=== PATIENT | female | born 1975 | race African-American/Black ===

== ENCOUNTER 2020-11-06 17:56 | Emergency (ER) | payer OTHER, SELFPAY ==
--- NOTE | ~2020-11-06 | XR_ITS ---
EXAMINATION: XR chest 1V portable EXAM DATE: 11/06/2020 18:48 INDICATION: Sob, Chest Tightness. TECHNIQUE: Portable AP frontal chest x-ray was obtained. Comparison is made to prior examination from 05/14/2019. FINDINGS: The lungs are clear. There are no pleural effusions. The cardiomediastinal silhouette is within normal limits. There is no pneumothorax suspected. The bones and soft tissues are unremarkab le. IMPRESSION: No acute cardiopulmonary findings. Reviewed, dictated and finalized at location A. RANCE SOLICITOR
[2020-11-06 18:02] VITALS: BP 154/94; PULSE 94; RESP 23; TEMP 36.6; O2SAT 100
[2020-11-06 18:04] VITALS: PULSE 78
[2020-11-06 18:08] VITALS: PULSE 93; RESP 24
--- NOTE | 2020-11-06 18:10 | ECG_ITS ---
Measurements Intervals [place] Rate: 87 P: 59 FL: 134 QRS: 60 QRSD: 89 T: 16 QT: 376 QTc: 455 Interpretive Statements SINUS RHYTHM NONSPECIFIC T-WAVE ABNORMALITY- ANT/INF LEADS BASELINE ARTIFACT- V3-V6 BORDERLINE ECG Electronically Signed On 11-07-2020 8:02:26 BLOCK LAYER by Jong Chaves D.O.
[2020-11-06] MEDS: SODIUM CHLORIDE 0.9% IV 1,000 ML 999 ML IV CONT (18:33)
[2020-11-06] MEDS: DEXAMETHASONE SOD PHOS INJ 4 MG/ML VIAL 6 MG IV PUSH (18:33)
[2020-11-06 18:47] LABS: Basophils Percent Auto 0.2 % (0.2-1.2); Eosinophils Percent Auto 0.7 % (0-4.4); Hematocrit 43.9 % (37.0-47.0); Hemoglobin 14.9 g/dL (12.0-15.0); Immature Granulocyte Absolute 0.01 K/mm3 (0.00-0.031); Immature Granulocyte Percent A 0.2 % (0-0.5); Lymphocytes Absolute Auto 2.21 K/mm3 (0.9-3.2); Lymphocytes Percent Auto 50.5 % (18.3-44.2); Mean Corpuscular HGB Conc 33.9 g/dl (32-36); Mean Corpuscular Hemoglobin 31.2 pg (26-34); Mean Corpuscular Volume 91.8 fl (80-100); Mean Platelet Volume 11.4 fl (7.4-10.4); Monocytes Absolute Auto 0.3 K/mm3 (0.1-0.6); Monocytes Percent Auto 7.3 % (2.6-8.5); Neutrophils Absolute Auto 1.8 K/mm3 (1.3-6.7); Neutrophils Percent Auto 41.1 % (45.5-73.1); Platelet Count Result 224 k/mm3 (150-375); Red Blood Count 4.78 M/mm3 (4.2-5.4); Red Cell Distribution Width 12.9 % (11.5-14.5); White Blood Count 4.4 K/mm3 (4.5-10.0)
[2020-11-06 19:00] LABS: Lactic Acid Reflex 0.7 mmol/L (0.7-2.1)
[2020-11-06 19:03] LABS: Alanine Aminotransferase 33 U/L (4-35); Albumin Level 4.9 g/dL (3.5-5.1); Alkaline Phosphatase 66 U/L (38-126); Anion Gap 8 mmol/L (8-16); Aspartate Amino Transferase 41 U/L (14-36); Bilirubin,Total 0.6 mg/dL (0.2-1.3); Blood Urea Nitrogen 18 mg/dL (7-17); CRP 0.6 mg/dL (<1.0); Calcium 9.3 mg/dL (8.4-10.2); Carbon Dioxide 33 mmol/L (22-30); Chloride 101 mmol/L (98-107); Estimated CRCL calculation 69 ml/min; Estimated Glomerular Filt Rate > 60; Glucose 94 mg/dL (65-105); INR 0.9; Potassium 3.7 mmol/L (3.4-5.0); Prothrombin Time 12.9 Seconds (11.1-14.7); Sodium 142 mmol/L (137-145)
[2020-11-06 19:04] LABS: Partial Thromboplastin Time 31.6 SECONDS (22.3-36.8)
[2020-11-06 19:06] LABS: D Dimer 0.36 ug/mL (<0.48)
--- NOTE | 2020-11-06 19:09 | ED.GENADULT ---
HPI - General Adult General Chief complaint: Shortness of Breath/Dyspnea Stated complaint: sob, chest pain, possible covid Time Seen by Provider: 11/06/20 17:59 Source: patient Mode of arrival: ambulatory Limitations: no limitations History of Present Illness HPI narrative: Patient is a 45-year-old female who presents to emergency department for evaluation of upper respiratory symptoms for the last 4 days patient notes that multiple family members are sick at home with similar symptoms patient notes headache congestion rhinorrhea subjective fever with chills with myalgias minimal cough had had some diarrhea which has resolved denies emesis notes today she developed some chest heaviness and became concerned and presented for evaluation has been using [id number] medications with minimal improvement on arrival patient did not appear distressed or uncomfortable Related Data Home Medications Medication Instructions Recorded Confirmed aripiprazole 10 mg tablet 10 mg PO DAILY 11/17/19 clonazepam 1 mg tablet 1 mg PO DAILY 11/17/19 penicillin V potassium 500 mg 500 mg PO Q12H 11/17/19 tablet Allergies Allergy/AdvReac Type Severity Reaction Status Date / Time No Known Allergies Allergy Verified 11/06/20 18:05 Review of Systems Review of Systems: All systems reviewed & are unremarkable except as noted in HPI and below PMFSH Past Medical History Medical History Depression History of uterine fibroid Surgical History Surgical History H/O dilation and curettage (~1992) H/O: hysterectomy (~2012) Previous section 2003, 2005, 2011 Family History Family History Mother Hypertension Other Diabetes mellitus Family history of allergic disorder Family history of glaucoma Social History Social History Social History: , lives with and 3 children. 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 Smoking status: Never smoker Alcohol intake: never Exam Narrative: Exam Narrative: GENERAL: Well-appearing, well-nourished, and in no acute distress. HEAD: Normocephalic, atraumatic. EYES: PERRLA and EOMI. ENT: Nares clear, no rhinorrhea or epistaxis. Mucous membranes moist. CHEST: Clear to auscultation. No respiratory distress. No wheezes rales or rhonchi HEART: Regular rate and rhythm. No murmur heard. EXTREMITIES: Normal range of motion. No edema. SKIN: Warm, dry, no rash. NEURO: No focal deficits. Alert and oriented x3. PSYCH: Normal mood and affect. Course Course Emergency Course: Patient in the room no distress no high risk changes in the evaluation patient will be tested for COVID-19 felt safe for discharge home to be treated symptomatically has been advised to self quarantine and follow with primary care purchase a self oximeter to watch her oxygenation no pneumonia no hypoxemia Vital Signs Vital signs: Vital Signs Temperature 97.8 F 11/06/20 18:02 Pulse Rate 94 11/06/20 18:02 Respiratory Rate 23 H 11/06/20 18:02 Blood Pressure 154/94 H 11/06/20 18:02 Pulse Oximetry 100 11/06/20 18:02 Temperature 97.8 F 11/06/20 18:02 Pulse Rate 93 11/06/20 18:08 Respiratory Rate 24 H 11/06/20 18:08 Blood Pressure 154/94 H 11/06/20 18:02 Pulse Oximetry 100 11/06/20 18:02 Medical Decision Making MDM Narrative Medical decision making narrative: Patient in the room in no distress aware of case findings treatment plan diagnosis agreeing to follow-up as directed felt appropriate for outpatient reevaluation ABCs stable vital signs intact felt appropriate for outpatient reevaluation Vital Signs Vital Signs: Vital Signs Temperature 97.8 F 11/06/20 18:02 Pulse Rate 94 11/06/20 18:02 Respiratory Rate 23 H 11/06/20 18:02 Blood Pressure 154/94 H
[2020-11-06 19:13] LABS: Troponin I < 0.012 ng/mL (0.000-0.034)
[2020-11-06 19:33] VITALS: BP 125/81; PULSE 79; RESP 14; O2SAT 100
[2020-11-07 16:54] LABS: SARS-CoV-2 RNA PCR Positive
== END 2020-11-06 19:36 | disposition home or self-care (01) ==
PROVIDERS: Emergency Medicine Emergency Medical Services; Emergency Provider Emergency Medicine; PCP Family Medicine
DX: U07.1 COVID-19 (principal); J06.9 Acute upper respiratory infection, unspecified; F32.9 Major depressive disorder, single episode, unspecified; R94.31 Abnormal electrocardiogram [ECG] [EKG]
CPT/HCPCS: 36415; 71045; 80053; 83605; 84484; 85025; 85380; 85610; 85730; 86140; 87635; 93005; 96365; 96375; 99284; C9803; J0131; J1100; J7030; U0003

== ENCOUNTER 2020-12-08 08:30 | Outpatient (CLI) | payer OTHER, SELFPAY ==
--- NOTE | 2020-12-08 15:49 | P.PCNPFT_ITS ---
PFT Interpretation This is a pulmonary function test with spirometry, plethysmography and diffusing capacity. The test was performed and results interpreted in accordance with the 2019 and 2005 ATS/ERS Task Force guidelines respectively using the Paul/Chinmay reference equations. Findings: Spirometry: The contour of the inspiratory and expiratory flow tracing are no rmal. The FVC is 2.48 L, 74% predicted. The FEV1 is 2.09, 80% predicted. The FEV1: FVC ratio was 84%. Plethysmography: The total lung capacity is 3.36 L, 70% predicted. The functional residual capacity is 1.24 L, 52% predicted. The residual volume is 0.71 L, 44% predicted. Diffusing capacity the absolute diffusion capacity is 18.0, 74% predicted. The diffusing capacity corrected for alveolar volume is 6.39, 152% predicted. Impression: There is a mild restrictive ventilatory abnormality. The spirometry is normal without evidence of an obstructive abnormality. The absolute diffusing capacity is moderately decreased but is increased when corrected for alveolar volume. There are no prior studies for comparison
== END 2020-12-08 08:31 | disposition home or self-care (01) ==
LOC: ANHPFT 08:31
PROVIDERS: PCP Family Medicine; Visit Provider Nurse Practitioner
DX: R06.02 Shortness of breath (principal); R94.31 Abnormal electrocardiogram [ECG] [EKG]
CPT/HCPCS: 94375; 94726; 94729

== ENCOUNTER 2021-01-05 15:31 | Outpatient (CLI) | payer OTHER, SELFPAY ==
--- NOTE | ~2021-01-05 | XR_ITS ---
XR chest 2V DATE: 01/05/2021 16:07 INDICATION: Persistent shortness of breath after Covid 19 in October TECHNIQUE: PA and lateral views COMPARISON: 11/06/2020 portable AP chest FINDINGS: Normal heart size. No hilar or mediastinal enlargement. No pulmonary infiltrate or consolid ation, pleural effusion or pulmonary vascular congestion or pneumothorax. Mild thoracic scoliosis. IMPRESSION: No active cardiopulmonary disease Reviewed, dictated and finalized at location B. E FUND TRADER
[2021-01-05 16:09] LABS: Basophils Percent Auto 0.2 % (0.2-1.2); Eosinophils Absolute Auto 0.1 K/mm3 (0-0.3); Eosinophils Percent Auto 1.3 % (0-4.4); Hemoglobin 13.3 g/dL (12.0-15.0); Immature Granulocyte Absolute 0.02 K/mm3 (0.00-0.031); Immature Granulocyte Percent A 0.2 % (0-0.5); Lymphocytes Absolute Auto 2.49 K/mm3 (0.9-3.2); Lymphocytes Percent Auto 28.4 % (18.3-44.2); Mean Corpuscular HGB Conc 34.1 g/dl (32-36); Mean Corpuscular Hemoglobin 30.8 pg (26-34); Mean Corpuscular Volume 90.3 fl (80-100); Monocytes Absolute Auto 0.4 K/mm3 (0.1-0.6); Neutrophils Absolute Auto 5.8 K/mm3 (1.3-6.7); Neutrophils Percent Auto 65.9 % (45.5-73.1); Platelet Count Result 245 k/mm3 (150-375); Red Blood Count 4.32 M/mm3 (4.2-5.4); Red Cell Distribution Width 12.9 % (11.5-14.5); White Blood Count 8.8 K/mm3 (4.5-10.0)
== END 2021-01-05 15:32 | disposition home or self-care (01) ==
LOC: ANHLAB 15:37
PROVIDERS: PCP Family Medicine; Visit Provider Nurse Practitioner
DX: R53.83 Other fatigue (principal); Z86.16 Personal history of COVID-19
CPT/HCPCS: 36415; 71046; 85025

== ENCOUNTER 2021-01-11 09:18 | Outpatient (CLI) | payer OTHER, SELFPAY ==
--- NOTE | 2021-01-11 14:57 | WPDSIXMINUTE ---
Six Minute Walk This is a 6 minutes walk test. The test was performed and interpreted in accordance with the 2014 ERS/ATS task force guidelines. Findings: The patient's resting room air oxygen saturation measured by pulse oximetry was 98% and her heart rate was 96 bpm. Patient ambulated for 366 meters and oxygen saturation remained 97 to 98%. Heart rate at the end of the study was 102 bpm. There are no prior studies for comparison.
== END 2021-01-11 09:19 | disposition home or self-care (01) ==
PROVIDERS: PCP Family Medicine; Visit Provider Internal Medicine Critical Care Medicine
DX: Z86.16 Personal history of COVID-19 (principal)
CPT/HCPCS: 94618

== ENCOUNTER 2021-01-19 21:40 | Emergency (ER) | payer OTHER, SELFPAY ==
[2021-01-19 21:44] VITALS: BP 127/81; PULSE 99; RESP 14; TEMP 36.6; O2SAT 100
--- NOTE | 2021-01-20 00:50 | ED.LOWEXIN ---
HPI - Extremity Injury (Lower) General Chief Complaint: Extremity Injury, Lower Stated Complaint: leg weakness Time Seen by Provider: 01/20/21 00:33 Source: patient Mode of arrival: ambulatory Limitations: no limitations History of Present Illness HPI Narrative: Patient is a 45-year-old female complaining of left leg pain that started since she had Covid back in October. Patient called her family doctor today and was told to go to the emergency room to get an ultrasound to rule out DVT. Patient denies any chest pain, shortness of breath, dull pain, nausea, vomiting, diarrhea, fever or chills. Related Data Home Medications Medication Instructions Recorded Confirmed aripiprazole 10 mg tablet 5 mg PO DAILY tablet 11/07/20 01/04/21 clonazepam 1 mg tablet 0.5 mg PO DAILY tablet 11/07/20 01/04/21 Allergies Allergy/AdvReac Type Severity Reaction Status Date / Time No Known Allergies Allergy Verified 01/05/21 14:47 Review of Systems Review of Systems: All systems reviewed & are unremarkable except as noted in HPI and below Constitutional: Constitutional: Denies body ache(s), Denies chills, Denies excessive sweating, Denies fatigue, Denies fever(s), Denies headache(s), Denies lethargy, Denies malaise, Denies weakness and Denies weight loss Eyes: Eyes: Denies blurry vision, Denies change in vision and Denies loss of vision ENT: Denies dizziness, Denies ear discharge, Denies headache(s), Denies lip swelling, Denies epistaxis, Denies nasal congestion, Denies neck pain, Denies throat swelling and Denies tongue swelling Cardiovascular: Cardiovascular: Denies chest pain, Denies chest pain at rest, Denies chest pain with activity, Denies diaphoresis, Denies rapid heart rate, Denies edema, Denies irregular heart rhythm, Denies lightheadedness, Denies palpitations, Denies dyspnea and Denies dyspnea on exertion Respiratory: Respiratory: Denies chest congestion, Denies cough, Denies hemoptysis, Denies dyspnea and Denies dyspnea on exertion Gastrointestinal: Gastrointestinal: Denies abdominal pain, Denies melena, Denies hematochezia, Denies diarrhea, Denies nausea, Denies vomiting and Denies hematemesis Musculoskeletal: Musculoskeletal: Denies abnormal gait, Denies deformity, Denies joint swelling, Denies limited range of motion, Denies neck pain and Denies numbness Neurologic: Denies Abnormal speech present, Denies abnormal gait, Denies confusion, Denies dizziness, Denies headache(s), Denies focal weakness, Denies loss of vision, Denies numbness, Denies Other visual disturbances, Denies Sensory deficit (Neuro) and Denies weakness Psychiatric: Psychiatric: Denies confusion, Denies depression, Denies auditory hallucinations, Denies homicidal ideation and Denies suicidal ideation Endocrine: Endocrine: Denies cold intolerance, Denies excessive sweating, Denies fatigue, Denies heat intolerance and Denies palpitations Hematologic/Lymphatic: Hematologic/Lymphatic: Denies easy bleeding and Denies easy bruising Allergic/Immunologic: Allergic/Immunologic: Denies lip swelling, Denies throat swelling and Denies tongue swelling PMFSH Past Medical History Medical History Anxiety Depression History of uterine fibroid Surgical History Surgical History H/O dilation and curettage (~1992) H/O: hysterectomy (~2012) Previous section 2004, 2005, 2011 Family History Family History Mother Hypertension Other Diabetes mellitus Family history of allergic disorder Family history of glaucoma Social History Social History Social History: , lives with and 3 children. 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
[2021-01-20 01:05] VITALS: BP 124/76; PULSE 86; RESP 15; O2SAT 100
== END 2021-01-20 01:05 | disposition home or self-care (01) ==
PROVIDERS: Emergency Provider Emergency Medicine; PCP Family Medicine
DX: M79.605 Pain in left leg (principal); F41.9 Anxiety disorder, unspecified; F32.9 Major depressive disorder, single episode, unspecified; Z86.16 Personal history of COVID-19
CPT/HCPCS: 99282

== ENCOUNTER 2021-01-20 08:18 | Outpatient (CLI) | payer OTHER, SELFPAY ==
--- NOTE | ~2021-01-20 | US_ITS ---
EXAMINATION: US venous doppler [facility] DATE: 01/20/2021 09:23 INDICATION: Left lower limb pain. TECHNIQUE: Grayscale ultrasound images without and with compression and Doppler ultrasound images of the left lower extremity veins were obtained. COMPARISON: None. FINDINGS: The visualized portions of left common femoral vein, profunda (deep) femoral vein, femoral vein, popl iteal vein, peroneal veins, posterior tibial veins, and greater saphenous vein outflow are patent. IMPRESSION: 1. No deep venous thrombosis. Reviewed, dictated and finalized at location A. [employer]
== END 2021-01-20 08:19 | disposition home or self-care (01) ==
PROVIDERS: PCP Family Medicine; Visit Provider Family Medicine
DX: M79.662 Pain in left lower leg (principal)
CPT/HCPCS: 93971

== ENCOUNTER 2021-02-27 08:49 | Outpatient (CLI) | payer OTHER, SELFPAY ==
--- NOTE | 2021-02-27 08:58 | ECHO_ITS ---
Patient Info Name: Chelsea Sun Age: 45 years : 1975 Gender: Female Ht: 63 in Wt: 172 lbs BSA: 1.89 m2 HR: 90 bpm BP: 143 / 96 mmHg Technical Quality: Fair Exam Date: 02/27/2021 9:08 AM Exam Location: [facility] Patient Status: Outpatient Admit Date: 02/27/2021 Staff Ordering Physician: Margarito Harrison MD Appraiser [employer]: Madelin Correa RDCS Attending Provider: Margarito Harrison MD Exam Type: CA echo doppler color flow Study Info Indications R01.1 - Cardiac murmur, unspecified Complete two-dimensional, color flow and Doppler transthoracic echocardiogram is performed. Summary 1. Complete two-dimensional, color flow and Doppler transthoracic echocardiogram is performed. 2. Left ventricular chamber dimension is normal. 3. Left ventricular systolic function is normal, estimated at 65-70%. 4. The left ventricular diastolic function is grade II diastolic dysfunction. 5. E/e' 10 is mildly elevated. 6. Global longitudinal strain is normal at -18.4%. 7. Left atrial chamber dimension is mildly enlarged. 8. There is mild mitral valve regurgitation. 9. There is mild tricuspid valve regurgitation. 10. No pulmonary hypertension, estimated pulmonary arterial systolic pressure is 24 mmHg. Left Ventricle E/e' 10 is mildly elevated. Global longitudinal strain is normal at -18.4%. Left ventricular chamber dimension is normal. Left ventricular systolic function is normal, estimated at 65-70%. The left ventricular diastolic function is grade II diastolic dysfunction. Right Ventricle Right ventricular chamber dimension is normal. Right ventricular systolic function is normal. Left Atria Left atrial chamber dimension is mildly enlarged. Right Atria Right atrial chamber dimension is normal. Aortic Valve The aortic valve is trileaflet. There is no aortic valve stenosis. There is no aortic valve regurgitation. Pulmonic Valve There is no pulmonic regurgitation. Mitral Valve There is no mitral valve stenosis. There is mild mitral valve regurgitation. Tricuspid Valve There is mild tricuspid valve regurgitation. No pulmonary hypertension, estimated pulmonary arterial systolic pressure is 24 mmHg. Pericardium/Pleural There is no pericardial effusion. Inferior Vena Cava Normal inferior vena cava with >50% collapse upon inspiration consistent with normal right atrial pressure, 5 mmHg. Aorta The aortic root size at the sinus of Valsalva is normal. Left Ventricular Outflow Tract Name Value Normal LVOT 2D LVOT Diameter 1.9 cm LVOT Doppler LVOT Peak Gradient 5 mmHg LVOT Mean Gradient 3 mmHg LVOT VTI 19 cm LVOT VTI/AV VTI Ratio 0.8 LVOT Stroke Volume 52 ml LVOT CO 4.1 l/min LVOT CI 2.2 l/min/m2 Pulmonic Valve Name Value Normal
== END 2021-02-27 08:50 | disposition home or self-care (01) ==
PROVIDERS: PCP Family Medicine; Visit Provider Family Medicine
DX: R01.1 Cardiac murmur, unspecified (principal); I34.0 Nonrheumatic mitral (valve) insufficiency; I36.1 Nonrheumatic tricuspid (valve) insufficiency
CPT/HCPCS: 93306

== ENCOUNTER 2022-06-04 15:04 | Outpatient (CLI) | payer OTHER, SELFPAY ==
--- NOTE | ~2022-06-04 | MM_ITS ---
EXAMINATION: MM screening [facility] BI w jose daniel HISTORY: Screening TECHNIQUE: Craniocaudal and mediolateral oblique 3-D tomosynthesis images were obtained and synthetic 2-D images were generated. CAD analysis was submitted and interpreted. COMPARISON: Comparison to multiple prior studies sequentially, with oldest reviewed study dated 04/2013. BREAST PARENCHYMAL COMPOSITION: There are scattered areas of fibroglandular density. FINDINGS: There is no evidence of suspicious mass, calcification, or architectural distortion to sugg est malignancy in either breast. There has been no suspicious interval change. IMPRESSION: 1. No mammographic evidence of malignancy. 2. Recommend routine screening mammography in one year. BI-RADS Category 1: Negative Reviewed, dictated and finalized at location A.
== END 2022-06-04 15:05 | disposition home or self-care (01) ==
LOC: ANHIMG 15:06
PROVIDERS: PCP Family Medicine; Visit Provider Family Medicine
DX: Z12.31 Encounter for screening mammogram for malignant neoplasm of breast (principal)
CPT/HCPCS: 77063; 77067

== ENCOUNTER 2023-02-19 13:54 | Outpatient (CLI) | payer OTHER, SELFPAY ==
[2023-02-19 14:21] LABS: Basophils Percent Auto 0.3 % (0.2-1.2); Eosinophils Absolute Auto 0.1 K/mm3 (0-0.3); Eosinophils Percent Auto 1.5 % (0-4.4); Hematocrit 37.4 % (37.0-47.0); Hemoglobin 12.5 g/dL (12.0-15.0); Immature Granulocyte Absolute 0.01 K/mm3 (0.00-0.031); Immature Granulocyte Percent A 0.1 % (0-0.5); Lymphocytes Absolute Auto 1.91 K/mm3 (0.9-3.2); Lymphocytes Percent Auto 24.2 % (18.3-44.2); Mean Corpuscular HGB Conc 33.4 g/dl (32-36); Mean Corpuscular Hemoglobin 31.5 pg (26-34); Mean Corpuscular Volume 94.2 fl (80-100); Mean Platelet Volume 11.6 fl (7.4-10.4); Monocytes Absolute Auto 0.5 K/mm3 (0.1-0.6); Monocytes Percent Auto 5.8 % (2.6-8.5); Neutrophils Absolute Auto 5.4 K/mm3 (1.3-6.7); Neutrophils Percent Auto 68.1 % (45.5-73.1); Platelet Count Result 193 k/mm3 (150-375); Red Blood Count 3.97 M/mm3 (4.2-5.4); Red Cell Distribution Width 13.2 % (11.5-14.5); White Blood Count 7.9 K/mm3 (4.5-10.0)
[2023-02-19 14:32] LABS: Alanine Aminotransferase 39 U/L (6-35); Albumin Level 4.6 g/dL (3.5-5.1); Alkaline Phosphatase 72 U/L (38-126); Anion Gap 4 mmol/L (8-16); Aspartate Amino Transferase 43 U/L (14-36); Bilirubin,Total 0.4 mg/dL (0.2-1.3); Blood Urea Nitrogen 13 mg/dL (7-17); Calcium 8.8 mg/dL (8.4-10.2); Carbon Dioxide 32 mmol/L (22-30); Chloride 103 mmol/L (98-107); Estimated Glomerular Filt Rate > 60; Glucose 68 mg/dL (65-110); Potassium 3.8 mmol/L (3.4-5.0); Sodium 139 mmol/L (137-145)
[2023-02-19 14:49] LABS: Beta HCG Quantitative < 2.39 mIU/ML
[2023-02-19 15:12] LABS: HIV 1/2 Ab P24 Ag Result Negative (Negative)
[2023-02-19 17:13] LABS: Hepatitis B Surface Antigen Negative (Negative)
[2023-02-19 17:19] LABS: HAV RESULT Negative (Negative); Hepatitis B Core IgM Result Negative (Negative)
[2023-02-19 17:31] LABS: Hepatitis C Virus Antibody Negative (Negative)
[2023-02-20 08:14] LABS: Rapid Plasma Reagin Non-Reactive (NonReactive)
== END 2023-02-19 13:55 | disposition home or self-care (01) ==
LOC: ANHLAB 13:56
PROVIDERS: PCP Family Medicine; Visit Provider Family Medicine
DX: Z00.00 Encounter for general adult medical examination without abnormal findings (principal); Z20.2 Contact with and (suspected) exposure to infections with a predominantly sexual mode of transmission; Z79.899 Other long term (current) drug therapy; I10 Essential (primary) hypertension
CPT/HCPCS: 36415; 80053; 80074; 84702; 85025; 86592; 86703; 87491; 87591; G0432

== ENCOUNTER 2023-11-25 23:58 | Emergency (ER) | payer OTHER, SELFPAY ==
[2023-11-26 00:03] VITALS: BP 120/75; PULSE 61; RESP 15; TEMP 36.4; O2SAT 100
--- NOTE | 2023-11-26 00:42 | ED.GENADULT ---
HPI - General Adult General Chief complaint: Back Pain/Injury Stated complaint: back pain, fall Time Seen by Provider: 11/26/23 00:26 Source: patient Mode of arrival: ambulatory Limitations: no limitations History of Present Illness HPI narrative: This is a 48-year-old female who presents to the ED with chief complaint of back pain from a ground level fall that occurred earlier tonight. Reports that she was walking to [place] when she accidentally slipped in the mud and fell on to the lower back. She has chronic back problems and feels that this is probably exacerbated. 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 Denies fevers, chills, bowel or bladder dysfunction, numbness, weakness. Denies any further sites of pain or injury. Related Data Home Medications Medication Instructions Recorded Confirmed clonazepam 0.5 mg tablet 0.5 mg PO QHS 01/25/21 02/19/23 aripiprazole 5 mg tablet (Abilify) 2 mg PO QHS 05/09/21 02/19/23 lidocaine 5 % topical patch 1 patch topical Q24H 08/30/21 02/19/23 Allergies Allergy/AdvReac Type Severity Reaction Status Date / Time No Known Allergies Allergy Verified 02/19/23 11:16 Review of Systems Review of Systems: All systems as dictated in [facility] Past Medical History Medical History Anxiety Depression Heart murmur History of COVID-19 History of uterine fibroid Mitral valve regurgitation Vitamin D deficiency Surgical History Surgical History H/O dilation and curettage (~1992) H/O: hysterectomy (~2012) Previous section 2004, 2005, 2011 Family History Family History Mother Hypertension Other Diabetes mellitus Family history of allergic disorder Family history of glaucoma Social History Social History Social History: Going thru divorce.3 children lives at home. Smoking status: Never smoker Alcohol intake: never Substance use: never Substance use type: does not use Living arrangements: with family Occupation/Education: unemployed Gender identity (if verbalized by the patient): Female Sexual Orientation (if Verbalized by the Patient): Straight or Heterosexual Agree to blood products: Yes Exam Narrative: GENERAL: Well-appearing, well-nourished, and in no acute distress. HEAD: Normocephalic, atraumatic. EYES: PERRLA and EOMI. ENT: Nares clear, no rhinorrhea or epistaxis. Mucous membranes moist. Oropharynx without tonsillar hypertrophy exudate or other lesions. NECK: Supple. No adenopathy or masses. CHEST: No respiratory distress. Clear to auscultation. No wheezes rales or rhonchi HEART: Regular rate and rhythm. No murmur heard. Normal peripheral pulses. ABDOMEN: Soft, nontender, nondistended, normal active bowel sounds. MSK: Normal range of motion. No edema. No midline spinal tenderness. Ambulatory without difficulty. SKIN: Warm, dry, no rash. NEURO: Alert and oriented x3. No focal deficits. PSYCH: Normal mood and affect. Course Vital Signs Vital signs: Vital Signs Temperature 97.6 F 11/26/23 00:03 Pulse Rate 61 11/26/23 00:03 Respiratory Rate 15 11/26/23 00:03 Blood Pressure 120/75 11/26/23 00:03 Pulse Oximetry 100 11/26/23 00:03 Oxygen Delivery Room Air 11/26/23 00:03 Temperature 97.6 F 11/26/23 00:03 Pulse Rate 61 11/26/23 00:03 Respiratory Rate 15 11/26/23 00:03 Blood Pressure 120/75 11/26/23 00:03 Pulse Oximetry 100 11/26/23 00:03 Oxygen Delivery Room Air 11/26/23 00:03 Medical Decision Making MDM Narrative Medical decision making narrative: This is a 48-year-old female who presents to the ED with chief complaint of a ground level fall mode back pain. Vitals are normal. Exam show
[2023-11-26] MEDS: ACETAMINOPHEN 500 MG TABLET 1000 MG PO (00:49)
[2023-11-26] MEDS: IBUPROFEN 400 MG TABLET 800 MG PO (00:50)
== END 2023-11-26 01:42 | disposition home or self-care (01) ==
LOC: ANHED 11-26 01:22
PROVIDERS: Emergency Provider Physician Assistant; PCP Family Medicine
DX: S39.012A Strain of muscle, fascia and tendon of lower back, initial encounter (principal); I34.0 Nonrheumatic mitral (valve) insufficiency; E55.9 Vitamin D deficiency, unspecified; F41.9 Anxiety disorder, unspecified; F32.A Depression, unspecified; Z90.710 Acquired absence of both cervix and uterus; W01.0XXA Fall on same level from slipping, tripping and stumbling without subsequent striking against object, initial encounter
CPT/HCPCS: 99283; A9270

== ENCOUNTER 2023-11-26 07:00 | Outpatient (CLI) | payer OTHER, SELFPAY ==
[2023-11-26 07:49] LABS: Alanine Aminotransferase 26 U/L (6-35); Albumin Level 4.1 g/dL (3.5-5.1); Alkaline Phosphatase 84 U/L (38-126); Anion Gap 5 mmol/L (8-16); Aspartate Amino Transferase 40 U/L (14-36); Bilirubin,Total 0.5 mg/dL (0.2-1.3); Blood Urea Nitrogen 14 mg/dL (7-17); Calcium 8.8 mg/dL (8.4-10.2); Carbon Dioxide 30 mmol/L (22-30); Chloride 103 mmol/L (98-107); Estimated Glomerular Filt Rate > 60; Glucose 87 mg/dL (65-110); Potassium 3.6 mmol/L (3.4-5.0); Sodium 138 mmol/L (137-145)
[2023-11-26 08:06] LABS: Beta HCG Quantitative < 2.39 mIU/ML
[2023-11-26 08:30] LABS: HIV 1/2 Ab P24 Ag Result Negative (Negative)
== END 2023-11-26 07:01 | disposition home or self-care (01) ==
LOC: ANHLAB 07:02
PROVIDERS: PCP Family Medicine; Visit Provider Family Medicine
DX: Z20.2 Contact with and (suspected) exposure to infections with a predominantly sexual mode of transmission (principal); Z79.899 Other long term (current) drug therapy
CPT/HCPCS: 36415; 80053; 84702; 86703; G0432

== ENCOUNTER 2023-11-26 18:31 | Emergency (ER) | payer OTHER, SELFPAY ==
--- NOTE | ~2023-11-26 | XR_ITS ---
EXAMINATION: XR chest 2V Exam Date/Time: 11/26/2023 21:06 SANDER MACHINE HISTORY: SOB, ASTHMA, CP Comparison: 01/05/2021. RESULT: Lines, tubes, and devices: None. Lungs and pleura: Clear. Cardiomediastinal silhouette: Stable. Other: No acute osseous or upper abdominal finding. IMPRESSION: No acute cardiopulmonary process. Reviewed, dictated and finalized at location K. ER MACHINE
[2023-11-26 19:27] VITALS: BP 109/71; PULSE 65; RESP 20; TEMP 35.9; O2SAT 100
--- NOTE | 2023-11-26 19:31 | ECG_ITS ---
Measurements Intervals [place] Rate: 57 P: 42 DE: 121 QRS: 68 QRSD: 85 T: 31 QT: 402 QTc: 394 Interpretive Statements SINUS BRADYCARDIA RSR' IN V1 OR V2, PROBABLY NORMAL VARIANT BORDERLINE ECG COMPARED TO ECG 11/06/2020 18:08:39 SINUS BRADYCARDIA NOW PRESENT Electronically Signed On 11-27-2023 5:19:16 COMMUNITY [employer] WORKER by Jong Chaves D.O.
[2023-11-26 21:00] VITALS: BP 110/77; PULSE 89; RESP 19; TEMP 36.7; O2SAT 98; O2SAT 99
--- NOTE | 2023-11-26 21:01 | ED.SOB ---
HPI - SOB/Dyspnea General Chief Complaint: Shortness of Breath/Dyspnea Stated Complaint: my asthma is acting up Time Seen by Provider: 11/26/23 20:51 Source: patient Mode of arrival: ambulatory Limitations: no limitations History of Present Illness HPI Narrative: This is a 48-year-old female that presents to the emergency department for evaluation of asthma. Reports history of asthma for which she is on a daily inhaled corticosteroid. She has been out of this for a while. She also reports she recently ran out of her albuterol. Reports no current wheezing or shortness of breath. Reports chest pain with palpation of her chest wall. Related Data Home Medications Medication Instructions Recorded Confirmed clonazepam 0.5 mg tablet 0.5 mg PO QHS 01/25/21 02/19/23 aripiprazole 5 mg tablet (Abilify) 2 mg PO QHS 05/09/21 02/19/23 lidocaine 5 % topical patch 1 patch topical Q24H 08/30/21 02/19/23 Allergies Allergy/AdvReac Type Severity Reaction Status Date / Time No Known Allergies Allergy Verified 11/26/23 18:31 Review of Systems Review of Systems: CONSTITUTIONAL: Denies fever CARDIOVASCULAR: Reports chest pain. Denies edema. RESPIRATORY: Denies cough or dyspnea. All systems reviewed & are unremarkable except as noted in HPI and below PMFSH Past Medical History Medical History Anxiety Depression Heart murmur History of COVID-19 History of uterine fibroid Mitral valve regurgitation Vitamin D deficiency Surgical History Surgical History H/O dilation and curettage (~1992) H/O: hysterectomy (~2012) Previous section 2003, 2005, 2011 Family History Family History Mother Hypertension Other Diabetes mellitus Family history of allergic disorder Family history of glaucoma Social History Social History Social History: Going thru divorce.3 children lives at home. Smoking status: Never smoker Alcohol intake: never Substance use: never Substance use type: does not use Living arrangements: with family Occupation/Education: unemployed Gender identity (if verbalized by the patient): Female Sexual Orientation (if Verbalized by the Patient): Straight or Heterosexual Agree to blood products: Yes Exam Narrative: GENERAL: Well-appearing, well-nourished, and in no acute distress. HEAD: Normocephalic, atraumatic. EYES: EOMI. ENT: Nares clear, no rhinorrhea or epistaxis. Mucous membranes moist. Oropharynx without tonsillar hypertrophy exudate or other lesions. CHEST: Clear to auscultation. No respiratory distress. No wheezes rales or rhonchi. Tender to palpation of anterior, upper chest wall HEART: Regular rate and rhythm. No murmur heard. Normal peripheral pulses. EXTREMITIES: Normal range of motion. No edema. SKIN: Warm, dry, no rash. NEURO: No focal deficits. Alert and oriented x3. PSYCH: Normal mood and affect Course Course Emergency Course: Patient updated on her workup and agrees with plan of care Vital Signs Vital signs: Vital Signs Temperature 96.7 F L 11/26/23 19:27 Pulse Rate 65 11/26/23 19:27 Respiratory Rate 20 11/26/23 19:27 Blood Pressure 109/71 11/26/23 19:27 Pulse Oximetry 100 11/26/23 19:27 Oxygen Delivery Room Air 11/26/23 19:27 Temperature 96.7 F L 11/26/23 19:27 Pulse Rate 65 11/26/23 19:27 Respiratory Rate 20 11/26/23 19:27 Blood Pressure 109/71 11/26/23 19:27 Pulse Oximetry 100 11/26/23 19:27 Oxygen Delivery Room Air 11/26/23 19:27 MDM - SOB/Dyspnea MDM Narrative Medical decision making narrative: Patient presents to the ER for evaluation of asthma. Reports she is out of her Advair and Albuterol. Her lungs are clear on exam. Oxygen saturation is 100% on room air. Chest x-ray without
== END 2023-11-26 21:55 | disposition home or self-care (01) ==
PROVIDERS: Emergency Provider Physician Assistant
DX: J45.909 Unspecified asthma, uncomplicated (principal); R00.1 Bradycardia, unspecified; F41.9 Anxiety disorder, unspecified; F32.A Depression, unspecified
CPT/HCPCS: 36415; 71046; 80053; 84702; 86703; 93005; 99283; G0432

== ENCOUNTER 2023-11-29 20:12 | Emergency (ER) | payer OTHER, SELFPAY ==
[2023-11-29 20:19] VITALS: BP 111/72; PULSE 65; RESP 14; TEMP 36.6; O2SAT 100
--- NOTE | 2023-11-29 22:31 | ED.GENADULT ---
HPI - General Adult General Chief complaint: Unspecified Stated complaint: coughing, needing med refill Time Seen by Provider: 11/29/23 22:06 Source: patient Mode of arrival: ambulatory Limitations: no limitations History of Present Illness HPI narrative: This is a 48-year-old female who presents to the ED for asthma prescriptions. Reports she has had some coughing recently and was prescribed albuterol to the wrong pharmacy. She is requesting these prescriptions to a new pharmacy today. Denies shortness of breath or any other complaint. Related Data Home Medications Medication Instructions Recorded Confirmed clonazepam 0.5 mg tablet 0.5 mg PO QHS 01/25/21 02/19/23 aripiprazole 5 mg tablet (Abilify) 2 mg PO QHS 05/09/21 02/19/23 lidocaine 5 % topical patch 1 patch topical Q24H 08/30/21 02/19/23 Allergies Allergy/AdvReac Type Severity Reaction Status Date / Time No Known Allergies Allergy Verified 11/26/23 18:31 Review of Systems Review of Systems: All systems as dictated in [facility] Past Medical History Medical History Anxiety Depression Heart murmur History of COVID-19 History of uterine fibroid Mitral valve regurgitation Vitamin D deficiency Surgical History Surgical History H/O dilation and curettage (~1992) H/O: hysterectomy (~2012) Previous section 2003, 2005, 2011 Family History Family History Mother Hypertension Other Diabetes mellitus Family history of allergic disorder Family history of glaucoma Social History Social History Social History: Going thru divorce.3 children lives at home. Smoking status: Never smoker Alcohol intake: never Substance use: never Substance use type: does not use Living arrangements: with family Occupation/Education: unemployed Gender identity (if verbalized by the patient): Female Sexual Orientation (if Verbalized by the Patient): Straight or Heterosexual Agree to blood products: Yes Exam Narrative: GENERAL: Well-appearing, well-nourished, and in no acute distress. HEAD: Normocephalic, atraumatic. EYES: PERRLA and EOMI. ENT: Nares clear, no rhinorrhea or epistaxis. Mucous membranes moist. Oropharynx without tonsillar hypertrophy exudate or other lesions. NECK: Supple. No adenopathy or masses. CHEST: No respiratory distress. Clear to auscultation. No wheezes rales or rhonchi HEART: Regular rate and rhythm. No murmur heard. Normal peripheral pulses. ABDOMEN: Soft, nontender, nondistended, normal active bowel sounds. MSK: Normal range of motion. No edema. SKIN: Warm, dry, no rash. NEURO: Alert and oriented x3. No focal deficits. PSYCH: Normal mood and affect. Course Vital Signs Vital signs: Vital Signs Temperature 97.8 F 11/29/23 20:19 Pulse Rate 65 11/29/23 20:19 Respiratory Rate 14 11/29/23 20:19 Blood Pressure 111/72 11/29/23 20:19 Pulse Oximetry 100 11/29/23 20:19 Oxygen Delivery Room Air 11/29/23 20:19 Temperature 97.9 F 11/29/23 22:44 Pulse Rate 67 11/29/23 22:44 Respiratory Rate 16 11/29/23 22:44 Blood Pressure 134/79 11/29/23 22:44 Pulse Oximetry 99 11/29/23 22:44 Oxygen Delivery Room Air 11/29/23 20:19 Medical Decision Making MDM Narrative Medical decision making narrative: This is a 48-year-old female presenting to the ED for medication refill. She is requesting albuterol for asthma. Vitals are normal. Exam benign. Prescription for Advair and albuterol written. Pt will be discharged in stable condition. Return precautions given and supportive measures discussed. Pt is understanding and agreeable with plan for discharge and follow-up with PCP. Vital Signs Vital Signs: Vital Signs Temperature 97.8 F 11/29/23 20:
[2023-11-29 22:44] VITALS: BP 134/79; PULSE 67; RESP 16; TEMP 36.6; O2SAT 99
== END 2023-11-29 22:44 | disposition home or self-care (01) ==
PROVIDERS: Emergency Provider Physician Assistant; PCP Family Medicine
DX: J45.909 Unspecified asthma, uncomplicated (principal); Z76.0 Encounter for issue of repeat prescription; I34.0 Nonrheumatic mitral (valve) insufficiency; E55.9 Vitamin D deficiency, unspecified; F41.9 Anxiety disorder, unspecified; F32.A Depression, unspecified; Z86.16 Personal history of COVID-19; Z90.710 Acquired absence of both cervix and uterus
CPT/HCPCS: 99283

== ENCOUNTER 2023-12-04 22:25 | Emergency (ER) | payer OTHER, SELFPAY ==
[2023-12-04 22:30] VITALS: BP 130/71; PULSE 67; RESP 20; TEMP 36.4; O2SAT 100
--- NOTE | 2023-12-05 01:59 | ED.GENADULT ---
HPI - General Adult General Chief complaint: Unspecified Stated complaint: med refill. Time Seen by Provider: 12/05/23 01:19 History of Present Illness HPI narrative: 48-year-old female with a history of asthma is reporting for evaluation for refill on her medications. She is requesting refills for her albuterol inhaler, Advair Diskus, nebulizer machine and albuterol solution. She is also requesting a vitamin-D refill. She states a few days ago she felt like her asthma has flared up it has since improved. She states she has run out of her meds approximately 1 month ago. She denies chest pain, shortness of breath, cough or congestion, fever, lower extremity edema. Related Data Home Medications Medication Instructions Recorded Confirmed clonazepam 0.5 mg tablet 0.5 mg PO QHS 01/25/21 02/19/23 aripiprazole 5 mg tablet (Abilify) 2 mg PO QHS 05/09/21 02/19/23 lidocaine 5 % topical patch 1 patch topical Q24H 08/30/21 02/19/23 Allergies Allergy/AdvReac Type Severity Reaction Status Date / Time No Known Allergies Allergy Verified 11/26/23 18:31 Review of Systems Review of Systems: CONSTITUTIONAL: Denies fever, chills, or sweats. EYES: Denies visual changes, redness, or discharge. ENT: Denies rhinorrhea, congestion, sore throat, or otalgia. CARDIOVASCULAR: Denies chest pain, palpitations, or edema. RESPIRATORY: See HPI GASTROINTESTINAL: Denies abdominal pain, nausea, vomiting, or diarrhea. GENITOURINARY: Denies dysuria or hematuria. SKIN: Denies rash or itching. MUSCULOSKELETAL: Denies back pain, joint pain, or myalgia. NEUROLOGIC: Denies headache, numbness, or weakness. PSYCHIATRIC: Denies anxiety or depression. [facility] Past Medical History Medical History Anxiety Depression Heart murmur History of COVID-19 History of uterine fibroid Mitral valve regurgitation Vitamin D deficiency Surgical History Surgical History H/O dilation and curettage (~1992) H/O: hysterectomy (~2013) Previous section 2004, 2005, 2012 Family History Family History Mother Hypertension Other Diabetes mellitus Family history of allergic disorder Family history of glaucoma Social History Social History Social History: Going thru divorce.3 children lives at home. Smoking status: Never smoker Alcohol intake: never Substance use: never Substance use type: does not use Living arrangements: with family Occupation/Education: unemployed Gender identity (if verbalized by the patient): Female Sexual Orientation (if Verbalized by the Patient): Straight or Heterosexual Agree to blood products: Yes Exam Narrative: GENERAL: Well-appearing, well-nourished, and in no acute distress. HEAD: Normocephalic, atraumatic. EYES: PERRLA and EOMI. ENT: Nares clear, no rhinorrhea or epistaxis. Mucous membranes moist. NECK: Supple. CHEST: Clear to auscultation. No respiratory distress. HEART: Regular rate and rhythm. holosystolic murmur heard on the left sternal border. Normal peripheral pulses. ABDOMEN: Soft, nontender, nondistended, normal active bowel sounds. EXTREMITIES: Normal range of motion. No edema. SKIN: Warm, dry, no rash. NEURO: No focal deficits. Alert and oriented x3 Course Vital Signs Vital signs: Vital Signs Temperature 97.6 F 12/04/23 22:30 Pulse Rate 67 12/04/23 22:30 Respiratory Rate 20 12/04/23 22:30 Blood Pressure 130/71 12/04/23 22:30 Pulse Oximetry 100 12/04/23 22:30 Oxygen Delivery Room Air 12/04/23 22:30 Temperature 97.6 F 12/04/23 22:30 Pulse Rate 67 12/04/23 22:30 Respiratory Rate 20 12/04/23 22:30 Blood Pressure 130/71 12/04/23 22:30 Pulse Oximetry 100 12/04/23 22:30 Oxygen Delivery Room Air
[2023-12-05 02:33] VITALS: BP 124/69; PULSE 65; RESP 14; O2SAT 100
== END 2023-12-05 02:36 | disposition home or self-care (01) ==
PROVIDERS: Emergency Provider Physician Assistant
DX: J45.909 Unspecified asthma, uncomplicated (principal); Z76.0 Encounter for issue of repeat prescription; F41.9 Anxiety disorder, unspecified; F32.A Depression, unspecified
CPT/HCPCS: 99281

== ENCOUNTER 2023-12-06 18:24 | Emergency (ER) | payer OTHER, SELFPAY ==
[2023-12-06 18:33] VITALS: BP 137/87; PULSE 67; RESP 16; TEMP 36.6; O2SAT 100
--- NOTE | 2023-12-06 21:13 | ED.LOWEXIN ---
HPI - Extremity Injury (Lower) General Chief Complaint: Extremity Injury, Lower Stated Complaint: toe pain Time Seen by Provider: 12/06/23 21:04 History of Present Illness HPI Narrative: Patient is a 48-year-old female here with right great toe pain. She notes that a few weeks ago she kicked a metal gutter when she was upset, injuring her great toe on the right side. She went to an outside hospital at that time, was informed she will likely lose her toenail. She notes that she initially had a blackened discoloration of her toenail, it was quite loose and just recently the toenail fell off. She notes that she walks quite a bit in the cold weather and has had some pain in this toe recently. She denies any additional injuries. She denies any difficulty ambulating. She denies any redness or discoloration of the toe. She denies any open wounds or drainage from the toe. Related Data Home Medications Medication Instructions Recorded Confirmed clonazepam 0.5 mg tablet 0.5 mg PO QHS 01/25/21 02/19/23 aripiprazole 5 mg tablet (Abilify) 2 mg PO QHS 05/09/21 02/19/23 lidocaine 5 % topical patch 1 patch topical Q24H 08/30/21 02/19/23 Allergies Allergy/AdvReac Type Severity Reaction Status Date / Time No Known Allergies Allergy Verified 12/06/23 18:25 Review of Systems Review of Systems: All systems reviewed & are unremarkable except as noted in HPI and below PMFSH Past Medical History Medical History Anxiety Depression Heart murmur History of COVID-19 History of uterine fibroid Mitral valve regurgitation Vitamin D deficiency Surgical History Surgical History H/O dilation and curettage (~1992) H/O: hysterectomy (~2012) Previous section 2003, 2005, 2011 Family History Family History Mother Hypertension Other Diabetes mellitus Family history of allergic disorder Family history of glaucoma Social History Social History Social History: Going thru divorce.3 children lives at home. Smoking status: Never smoker Alcohol intake: never Substance use: never Substance use type: does not use Living arrangements: with family Occupation/Education: unemployed Gender identity (if verbalized by the patient): Female Sexual Orientation (if Verbalized by the Patient): Straight or Heterosexual Agree to blood products: Yes Exam Narrative: GENERAL: Well-appearing, well-nourished, and in no acute distress. HEAD: Normocephalic, atraumatic. EYES: PERRLA and EOMI. ENT: Nares clear. Mucous membranes moist. NECK: Supple. CHEST: Clear to auscultation. No respiratory distress. HEART: Regular rate and rhythm. Normal peripheral pulses. ABDOMEN: Soft, nontender, nondistended. EXTREMITIES: Normal range of motion. No edema. No discoloration of the great toe on the right foot. She appears to have lost her great toe nail and has new growth coming in without any signs of infection, bruising or swelling. SKIN: Warm, dry, no rash. NEURO: No focal deficits. Alert and oriented x3. PSYCH: Normal mood and affect. Course Course Emergency Course: Chart review performed. Patient here with toe pain. Triage vitals normal. Patient seen and evaluated, non toxic appearing, alert, oriented. She appears to have lost her original toe nail on the great toe and it has clean new growth. No concern for infection or new injury. Patient declines tylenol here as she already has some. The results of pertinent diagnostic studies and exam findings were discussed. The patient?s provisional diagnosis and plan of care were discussed with the patient and present family. The patient and/or present family expressed understanding of the diagnosis and plan. The nurse was instructed to provide written instruct
== END 2023-12-06 22:00 | disposition home or self-care (01) ==
LOC: ANHED 21:31
PROVIDERS: Emergency Provider Student in an Organized Health Care Education/Training Program
DX: S99.921A Unspecified injury of right foot, initial encounter (principal); I34.0 Nonrheumatic mitral (valve) insufficiency; E55.9 Vitamin D deficiency, unspecified; F41.9 Anxiety disorder, unspecified; F32.A Depression, unspecified; Z86.16 Personal history of COVID-19; Z90.710 Acquired absence of both cervix and uterus; W22.8XXA Striking against or struck by other objects, initial encounter
CPT/HCPCS: 99282

== ENCOUNTER 2023-12-07 19:37 | Emergency (ER) | payer OTHER, SELFPAY ==
[2023-12-07 19:40] VITALS: BP 145/92; PULSE 70; RESP 18; TEMP 36.5; O2SAT 100
[2023-12-07 20:48] LABS: Appearance Urine Clear (Clear); Bilirubin Urine Negative (Negative); Blood Urine Negative (Negative); Color Urine Yellow (Yellow); Glucose Urine UA Negative (Negative); Ketones Urine Negative (Negative); Leukocyte Esterase Ur Negative LEU/UL (Negative); Nitrate Urine Negative (Negative); Protein Urine Negative (Negative); Specific Grav Ur 1.016 (1.001-1.035)
[2023-12-07 20:53] LABS: Add Urine Microscopic? NO
--- NOTE | 2023-12-08 03:02 | ED.FEMALEGU ---
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 Ongoing since yesterday. No other associated symptoms. Reports no concern for STDs. Denies any abnormal discharge. Denies fevers, abdominal pain, flank pain, vomiting, or hematuria. Related Data Home Medications Medication Instructions Recorded Confirmed clonazepam 0.5 mg tablet 0.5 mg PO QHS 01/25/21 02/19/23 aripiprazole 5 mg tablet (Abilify) 2 mg PO QHS 05/09/21 02/19/23 lidocaine 5 % topical patch 1 patch topical Q24H 08/30/21 02/19/23 Allergies Allergy/AdvReac Type Severity Reaction Status Date / Time No Known Allergies Allergy Verified 12/08/23 02:52 Review of Systems Review of Systems: CONSTITUTIONAL: Denies fever GASTROINTESTINAL: Denies abdominal pain, nausea, vomiting GENITOURINARY: Denies dysuria or hematuria. All systems reviewed & are unremarkable except as noted in HPI and below PMFSH Past Medical History Medical History Anxiety Depression Heart murmur History of COVID-19 History of uterine fibroid Mitral valve regurgitation Vitamin D deficiency Surgical History Surgical History H/O dilation and curettage (~1992) H/O: hysterectomy (~2012) Previous section 2003, 2005, 2011 Family History Family History Mother Hypertension Other Diabetes mellitus Family history of allergic disorder Family history of glaucoma Social History Social History Social History: Going thru divorce.3 children lives at home. Smoking status: Never smoker Alcohol intake: never Substance use: never Substance use type: does not use Living arrangements: with family Occupation/Education: unemployed Gender identity (if verbalized by the patient): Female Sexual Orientation (if Verbalized by the Patient): Straight or Heterosexual Agree to blood products: Yes Exam Narrative: GENERAL: Well-appearing, well-nourished, and in no acute distress. HEAD: Normocephalic, atraumatic. EYES: EOMI. CHEST: Clear to auscultation. No respiratory distress. No wheezes rales or rhonchi HEART: Regular rate and rhythm. No murmur heard. Normal peripheral pulses. ABDOMEN: Nondistended. No CVA tenderness EXTREMITIES: Normal range of motion. No edema. SKIN: Warm, dry, no rash. NEURO: No focal deficits. Alert and oriented x3. PSYCH: Normal mood and affect Course Course Emergency Course: Patient updated on her workup and agrees with plan of care Vital Signs Vital signs: Vital Signs Temperature 97.7 F 12/07/23 19:40 Pulse Rate 70 12/07/23 19:40 Respiratory Rate 18 12/07/23 19:40 Blood Pressure 145/92 H 12/07/23 19:40 Pulse Oximetry 100 12/07/23 19:40 Oxygen Delivery Room Air 12/07/23 19:40 Temperature 97.7 F 12/07/23 19:40 Pulse Rate 70 12/07/23 19:40 Respiratory Rate 18 12/07/23 19:40 Blood Pressure 145/92 H 12/07/23 19:40 Pulse Oximetry 100 12/07/23 19:40 Oxygen Delivery Room Air 12/07/23 19:40 MDM - Female Genitourinary MDM Narrative Medical decision making narrative: Patient presents to the emergency department for urinary frequency. Denies any associated symptoms. Reports no concern for STDs. She is afebrile and nontoxic appearing. UA without evidence of infection. She was updated on her workup. Instructed to have follow up with primary doctor. She was given warnings to return to the ER Differential Diagnosis Differential diagnosis: Likely urinary tract infection, vaginiti
== END 2023-12-08 03:16 | disposition home or self-care (01) ==
PROVIDERS: Emergency Provider Physician Assistant; PCP Family Medicine
DX: R35.0 Frequency of micturition (principal); I34.0 Nonrheumatic mitral (valve) insufficiency; E55.9 Vitamin D deficiency, unspecified; F41.9 Anxiety disorder, unspecified; F32.A Depression, unspecified; Z86.16 Personal history of COVID-19; Z90.710 Acquired absence of both cervix and uterus
CPT/HCPCS: 81003; 99282; 99283

== ENCOUNTER 2023-12-08 18:37 | Emergency (ER) | payer OTHER, SELFPAY ==
[2023-12-08 18:41] VITALS: BP 145/78; PULSE 70; RESP 16; TEMP 36.8; O2SAT 100
--- NOTE | 2023-12-08 20:48 | ED.GENADULT ---
HPI - General Adult General Chief complaint: Skin/Abscess/Foreign Body Stated complaint: I HAVE FROSTBITE Time Seen by Provider: 12/08/23 19:00 History of Present Illness HPI narrative: Patient is a 48-year-old female presenting with concern for frostbite. She states that she has been outside in the freezing cold all day and has had to take multiple buses to get here. States that her toes and her fingers are extremely cold, she has concern for frostbite. No color changes. No further complaints. Related Data Home Medications Medication Instructions Recorded Confirmed clonazepam 0.5 mg tablet 0.5 mg PO QHS 01/25/21 02/19/23 aripiprazole 5 mg tablet (Abilify) 2 mg PO QHS 05/09/21 02/19/23 lidocaine 5 % topical patch 1 patch topical Q24H 08/30/21 02/19/23 Allergies Allergy/AdvReac Type Severity Reaction Status Date / Time No Known Allergies Allergy Verified 12/08/23 02:52 Review of Systems Review of Systems: All systems reviewed & are unremarkable except as noted in HPI and below PMFSH Past Medical History Medical History Anxiety Depression Heart murmur History of COVID-19 History of uterine fibroid Mitral valve regurgitation Vitamin D deficiency Surgical History Surgical History H/O dilation and curettage (~1992) H/O: hysterectomy (~2012) Previous section 2003, 2005, 2011 Family History Family History Mother Hypertension Other Diabetes mellitus Family history of allergic disorder Family history of glaucoma Social History Social History Social History: Going thru divorce.3 children lives at home. Smoking status: Never smoker Alcohol intake: never Substance use: never Substance use type: does not use Living arrangements: with family Occupation/Education: unemployed Gender identity (if verbalized by the patient): Female Sexual Orientation (if Verbalized by the Patient): Straight or Heterosexual Agree to blood products: Yes Exam Narrative: GENERAL: Well-appearing, In no acute distress, pleasant cooperative HEAD: Normocephalic, atraumatic. EYES: PERRLA and EOMI. ENT: grossly unremarkable NECK: Supple. CHEST: No respiratory distress. HEART: Regular rate and rhythm EXTREMITIES: Normal range of motion. No edema. SKIN: Warm, dry, no rash. fingers and toes are warm, normal color; brisk cap refill NEURO: Alert and oriented x3. PSYCH: Normal mood and affect. Course Vital Signs Vital signs: Vital Signs Temperature 98.2 F 12/08/23 18:41 Pulse Rate 70 12/08/23 18:41 Respiratory Rate 16 12/08/23 18:41 Blood Pressure 145/78 H 12/08/23 18:41 Pulse Oximetry 100 12/08/23 18:41 Oxygen Delivery Room Air 12/08/23 18:41 Temperature 98.2 F 12/08/23 18:41 Pulse Rate 70 12/08/23 18:41 Respiratory Rate 16 12/08/23 18:41 Blood Pressure 145/78 H 12/08/23 18:41 Pulse Oximetry 100 12/08/23 18:41 Oxygen Delivery Room Air 12/08/23 18:41 Medical Decision Making MDM Narrative Medical decision making narrative: 48-year-old female presenting with concern for frostbite. Vitals are stable. Exam remarkable for the above. her exam is not consistent with frostbite. Patient is unfortunately currently homeless. States that she does not have anywhere to go tonight. States that she has been intermittently staying in our waiting room, I feel that this is fine for tonight. Spoke with the charge nurse is agreeable with this. Patient discharged in stable condition. Differential Diagnosis Differential Diagnosis: Homelessness, environmental exposure Medical Records Medical records reviewed: Yes I reviewed the external patient's medical records. Vital Signs Vital Signs: Vital Signs Temperatu
== END 2023-12-08 21:16 | disposition home or self-care (01) ==
PROVIDERS: Emergency Provider Emergency Medicine; PCP Family Medicine
DX: T69.8XXA Other specified effects of reduced temperature, initial encounter (principal); Z59.819 Housing instability, housed unspecified; I34.0 Nonrheumatic mitral (valve) insufficiency; E55.9 Vitamin D deficiency, unspecified; F41.9 Anxiety disorder, unspecified; F32.A Depression, unspecified; Z86.16 Personal history of COVID-19; Z90.710 Acquired absence of both cervix and uterus; X31.XXXA Exposure to excessive natural cold, initial encounter
CPT/HCPCS: 99281

== ENCOUNTER 2023-12-09 19:00 | Emergency (ER) | payer OTHER, SELFPAY ==
[2023-12-09 19:16] VITALS: BP 132/79; PULSE 88; RESP 20; TEMP 36.6; O2SAT 100
[2023-12-10 01:33] VITALS: BP 114/76; PULSE 84; RESP 16; TEMP 36.8; O2SAT 100
--- NOTE | 2023-12-10 02:31 | ED.GENADULT ---
HPI - General Adult General Chief complaint: Unspecified Stated complaint: lady's issue Time Seen by Provider: 12/10/23 02:13 Source: patient and old records reviewed Mode of arrival: ambulatory Limitations: no limitations History of Present Illness HPI narrative: Patient is a 48-year-old female who presents the ED with concern for hemorrhoids. 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 Over the last few days, she has had increased pain related to the hemorrhoids. She denies constipation, reports last bowel movement was just prior to arrival. Denies rectal bleeding, melena, abdominal pain, rectal leakage, fevers. Patient has previously used witch Marisela and tucks pads for relief of hemorrhoids. Per records, patient has been seen in our ED numerous times over the last several days for various issues. It has been reported that she is homeless and has been sleeping in our ED waiting room. Patient states she does have a home and [place], [place], but has had issues with her ex- and has been staying in a motel. [facility] Related Data Home Medications Medication Instructions Recorded Confirmed clonazepam 0.5 mg tablet 0.5 mg PO QHS 01/25/21 02/19/23 aripiprazole 5 mg tablet (Abilify) 2 mg PO QHS 05/09/21 02/19/23 lidocaine 5 % topical patch 1 patch topical Q24H 08/30/21 02/19/23 Allergies Allergy/AdvReac Type Severity Reaction Status Date / Time No Known Allergies Allergy Verified 12/08/23 02:52 Review of Systems Review of Systems: CONSTITUTIONAL: Denies fever, chills, or sweats. GASTROINTESTINAL: See HPI. GENITOURINARY: Denies dysuria or hematuria. All systems reviewed & are unremarkable except as noted in HPI and below PMFSH Past Medical History Medical History Anxiety Depression Heart murmur History of COVID-19 History of uterine fibroid Mitral valve regurgitation Vitamin D deficiency Surgical History Surgical History H/O dilation and curettage (~1992) H/O: hysterectomy (~2012) Previous section 2003, 2005, 2012 Family History Family History Mother Hypertension Other Diabetes mellitus Family history of allergic disorder Family history of glaucoma Social History Social History Social History: Going thru divorce.3 children lives at home. Smoking status: Never smoker Alcohol intake: never Substance use: never Substance use type: does not use Living arrangements: with family Occupation/Education: unemployed Gender identity (if verbalized by the patient): Female Sexual Orientation (if Verbalized by the Patient): Straight or Heterosexual Agree to blood products: Yes Exam Narrative: GENERAL: Well appearing, well-nourished, non-toxic, in no acute distress. HEAD: Normocephalic, atraumatic. RESPIRATORY: Airway patent, respirations nonlabored. CARDIOVASCULAR: Regular rate and rhythm. MUSCULOSKELETAL: Moves all extremities. No gross deformities. RECTAL: Few small external hemorrhoids noted. No evidence of thrombosis. No bleeding. No obvious fissures. SKIN: Warm, dry, normal color. NEURO: A&O X3. Speech clear. PSYCHIATRIC: Appropriate mood and affect. Normal interaction. Course Vital Signs Vital signs: Vital Signs Temperature 98 F 12/09/23 19:16 Pulse Rate 88 12/09/23 19:16 Respiratory Rate 20 12/09/23 19:16 Blood Pressure 132/79 12/09/23 19:16 Pulse Oximetry 100 12/09/23 19:16 Oxygen Delivery Room Air 12/09/23 19:16 Temperature 98.2 F 12/10/23 01:33 Pulse Rate 84 12/10/23 01:33 Respiratory Rate 16 12/10/23 01:33 Blood Pressure 114/76 12/10/23 01:33 Puls
[2023-12-10 02:52] VITALS: BP 126/79; PULSE 63; RESP 15; TEMP 36.6; O2SAT 99
== END 2023-12-10 02:53 | disposition home or self-care (01) ==
PROVIDERS: Emergency Provider Physician Assistant; PCP Family Medicine
DX: K64.4 Residual hemorrhoidal skin tags (principal); I34.0 Nonrheumatic mitral (valve) insufficiency; E55.9 Vitamin D deficiency, unspecified; F41.9 Anxiety disorder, unspecified; F32.A Depression, unspecified; Z86.16 Personal history of COVID-19; Z90.710 Acquired absence of both cervix and uterus
CPT/HCPCS: 99283

== ENCOUNTER 2023-12-10 16:48 | Emergency (ER) | payer OTHER, SELFPAY ==
[2023-12-10 17:20] VITALS: BP 141/70; PULSE 88; RESP 20; TEMP 36.6; O2SAT 98
[2023-12-11 00:11] VITALS: BP 101/64; PULSE 71; RESP 15; TEMP 36.5; O2SAT 100
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
[2023-12-11] MEDS: LIDOCAINE 5% PATCH 1 PATCH TRANSDERM (02:16)
== END 2023-12-11 02:31 | disposition home or self-care (01) ==
PROVIDERS: Emergency Provider Physician Assistant; PCP Family Medicine
DX: S39.012A Strain of muscle, fascia and tendon of lower back, initial encounter (principal); I34.0 Nonrheumatic mitral (valve) insufficiency; E55.9 Vitamin D deficiency, unspecified; F41.9 Anxiety disorder, unspecified; F32.A Depression, unspecified; Z86.16 Personal history of COVID-19; Z90.710 Acquired absence of both cervix and uterus; X50.0XXA Overexertion from strenuous movement or load, initial encounter
CPT/HCPCS: 99283; A9270

== ENCOUNTER 2024-01-03 13:01 | Emergency (ER) | payer OTHER, SELFPAY ==
[2024-01-03 13:08] VITALS: BP 101/65; PULSE 92; RESP 20; TEMP 37.2; O2SAT 100
--- NOTE | 2024-01-03 16:28 | PC.NURSE ---
pt states they do not want to take any pills. pt is still having tangential thoughts out loud and is difficult to distract and de-escalate. pt was offered ice water and they accepted
--- NOTE | 2024-01-03 17:59 | ED.PSYCH ---
HPI - Psych General Chief Complaint: Psychiatric Symptoms <DEBORA Nascimento Last Filed: 01/03/24 19:50> Stated Complaint: psych <DEBORA Nascimento Last Filed: 01/03/24 19:50> Time Seen by Provider: 01/03/24 15:55 <DEBORA Nascimento Last Filed: 01/03/24 19:50> Source: patient <DEBORA Nascimento Last Filed: 01/03/24 19:50> Mode of arrival: ambulatory <DEBORA Nascimento Last Filed: 01/03/24 19:50> Limitations: altered mental status and clinical condition <DEBORA Nascimento Last Filed: 01/03/24 19:50> History of Present Illness HPI Narrative: Patient is a 48-year-old female presents to ED with psychiatric concerns. Patient has previously been seen in our ED several times previously with inclement weather due to homelessness. Today, patient presents to the ED with rambling/tangential thoughts, manic behavior, unable to answer questions or tell me why she is in the ED. Has been speaking nonstop in ED room to the wall. Unable to follow conversation. <DEBORA Nascimento Last Filed: 01/03/24 19:50> Related Data Home Medications: Home Medications Medication Instructions Recorded Confirmed clonazepam 0.5 mg tablet 0.5 mg PO QHS 01/25/21 02/19/23 aripiprazole 5 mg tablet (Abilify) 2 mg PO QHS 05/09/21 02/19/23 lidocaine 5 % topical patch 1 patch topical Q24H 08/30/21 02/19/23 <DEBORA Nascimento Last Filed: 01/03/24 19:50> Allergies/Adverse Reactions: Allergies Allergy/AdvReac Type Severity Reaction Status Date / Time No Known Allergies Allergy Verified 12/08/23 02:52 <DEBORA Nascimento Last Filed: 01/03/24 19:50> Review of Systems Review of Systems: ROS unobtainable: Yes unobtainable due to mental status <Juani Tilley PA-C - Last Filed: 01/03/24 19:50> [facility] Past Medical History Medical History: Medical History Anxiety Depression Heart murmur History of COVID-19 History of uterine fibroid Mitral valve regurgitation Vitamin D deficiency <Juani Tilley PA-C - Last Filed: 01/03/24 19:50> Surgical History Surgical History: Surgical History H/O dilation and curettage (~1992) H/O: hysterectomy (~2012) Previous section 2003, 2005, 2011 <Juani Tilley PA-C - Last Filed: 01/03/24 19:50> Family History Family History: Family History Mother Hypertension Other Diabetes mellitus Family history of allergic disorder Family history of glaucoma <Juani Tilley PA-C - Last Filed: 01/03/24 19:50> Social History Social History: Social History Social History: Going thru divorce.3 children lives at home. Smoking status: Never smoker Alcohol intake: never Substance use: never Substance use type: does not use Living arrangements: with family Occupation/Education: unemployed Gender identity (if verbalized by the patient): Female Sexual Orientation (if Verbalized by the Patient): Straight or Heterosexual Agree to blood products: Yes <Juani Tilley PA-C - Last Filed: 01/03/24 19:50> Exam Narrative: GENERAL: Mildly disheveled, non-toxic, in no acute distress. HEAD: Normocephalic, atraumatic. RESPIRATORY: Airway patent, respirations nonlabored. CARDIOVASCULAR: Regular rate and rhythm MUSCULOSKELETAL: Moves all extremities. No gross deformities. SKIN: Warm, dry, normal color. NEURO: A&O X3. Speech clear. Cranial nerves II-XII grossly intact. Steady gait. No ataxic movements. PSYCHIATRIC: Rapid pressured speech, tangential thoughts, poor insight, labile mood with intermittent agitation/tearfulness. <Juani Tilley PA-C - Last [place]
[2024-01-03 19:24] LABS: Basophils Percent Auto 0.1 % (0.2-1.2); Eosinophils Absolute Auto 0.1 K/mm3 (0-0.3); Eosinophils Percent Auto 0.7 % (0-4.4); Immature Granulocyte Absolute 0.02 K/mm3 (0.00-0.031); Immature Granulocyte Percent A 0.2 % (0-0.5); Lymphocytes Absolute Auto 2.19 K/mm3 (0.9-3.2); Lymphocytes Percent Auto 26.6 % (18.3-44.2); Mean Corpuscular HGB Conc 33.3 g/dl (32-36); Mean Corpuscular Hemoglobin 31.4 pg (26-34); Mean Corpuscular Volume 94.2 fl (80-100); Mean Platelet Volume 10.6 fl (7.4-10.4); Monocytes Absolute Auto 0.5 K/mm3 (0.1-0.6); Monocytes Percent Auto 6.4 % (2.6-8.5); Neutrophils Absolute Auto 5.4 K/mm3 (1.3-6.7); Platelet Count Result 318 k/mm3 (150-375); Red Blood Count 4.46 M/mm3 (4.2-5.4); Red Cell Distribution Width 12.8 % (11.5-14.5); White Blood Count 8.2 K/mm3 (4.5-10.0)
--- NOTE | 2024-01-03 19:32 | PC.NURSE ---
pt care and report given to STEPHANE Costa. all questions answered
[2024-01-03 19:34] LABS: Acetaminophen < 10 ug/mL (10-30); Ethanol < 10 mg/dL (<10); Salicylate < 1.0 mg/dL (2-20)
[2024-01-03 19:41] LABS: Alanine Aminotransferase 49 U/L (6-35); Albumin Level 4.5 g/dL (3.5-5.1); Alkaline Phosphatase 75 U/L (38-126); Anion Gap 7 mmol/L (8-16); Aspartate Amino Transferase 43 U/L (14-36); Bilirubin,Total 1.3 mg/dL (0.2-1.3); Blood Urea Nitrogen 10 mg/dL (7-17); Calcium 9.7 mg/dL (8.4-10.2); Carbon Dioxide 26 mmol/L (22-30); Chloride 103 mmol/L (98-107); Estimated CRCL calculation 72 ml/min; Estimated Glomerular Filt Rate > 60; Glucose 92 mg/dL (65-110); Potassium 3.5 mmol/L (3.4-5.0); Sodium 136 mmol/L (137-145)
[2024-01-03 19:59] LABS: SARS-CoV-2 RNA PCR Negative (Negative)
--- NOTE | 2024-01-03 20:26 | PC.NURSE ---
Addendum entered by Tiffany Roldan RN 01/03/24 20:27: Pt in room, sitting in wheelchair. Original Note: Assumed care of pt. Report from STEPHANE Ribeiro.
--- NOTE | 2024-01-03 20:31 | PC.NURSE ---
Bedside Urine Negative
[2024-01-03 20:33] LABS: Appearance Urine Clear (Clear); Bilirubin Urine Negative (Negative); Blood Urine Negative (Negative); Color Urine Yellow (Yellow); Glucose Urine UA Negative (Negative); Ketones Urine Trace mg/dL (Negative); Leukocyte Esterase Ur Negative LEU/UL (Negative); Nitrate Urine Negative (Negative); Protein Urine Negative (Negative); Specific Grav Ur 1.006 (1.001-1.035)
[2024-01-03 20:36] LABS: Add Urine Microscopic? NO
[2024-01-03 20:49] LABS: Amphetamine Screen Urine Negative (Negative); Barbiturate Screen Urine Negative (Negative); Benzodiazepines Screen Urine Negative (Negative); Cannabinoid Screen Urine Negative (Negative); Cocaine Screen Urine Negative (Negative); Methadone Screen Urine Negative (Negative); Opiate Screen Urine Negative (Negative); Phencyclidine Screen Urine Negative (Negative)
--- NOTE | 2024-01-03 21:47 | PC.NURSE ---
All lab results back. Calling Crisis.
--- NOTE | 2024-01-03 23:00 | PC.NURSE ---
Crisis at bedside.
--- NOTE | 2024-01-03 23:30 | PC.NURSE ---
Per Crisis, no criteria for admission. States they called her daughter who reports that dad will not allow pt back in the house at this time. Asked if daughter/dad could pay for hotel room since temps are low. Awaiting their call back.
[2024-01-04 00:47] VITALS: BP 121/72; PULSE 67; RESP 14; TEMP 36.7; O2SAT 100
--- NOTE | 2024-01-04 00:59 | PC.NURSE ---
PT given food and new scrub pants.
== END 2024-01-04 01:40 | disposition home or self-care (01) ==
PROVIDERS: Emergency Provider Physician Assistant
DX: F30.9 Manic episode, unspecified (principal); Z11.52 Encounter for screening for COVID-19; I34.0 Nonrheumatic mitral (valve) insufficiency; E55.9 Vitamin D deficiency, unspecified; F41.9 Anxiety disorder, unspecified; Z86.16 Personal history of COVID-19; Z90.710 Acquired absence of both cervix and uterus
CPT/HCPCS: 36415; 80053; 80307; 81003; 84443; 85025; 87635; 99284

== ENCOUNTER 2024-04-05 06:39 | Emergency (ER) | payer OTHER, SELFPAY ==
[2024-04-05 06:47] VITALS: BP 122/75; PULSE 65; RESP 18; TEMP 36.6; O2SAT 100
--- NOTE | 2024-04-05 07:15 | PC.NURSE ---
pt in front lobby talking on phone
--- NOTE | 2024-04-05 07:27 | ED.GENADULT ---
HPI - General Adult General Chief complaint: Unspecified Stated complaint: asthma, back, feet Time Seen by Provider: 04/05/24 07:00 History of Present Illness HPI narrative: Patient is a 48-year-old female who presents ER for medication refill. Patient is requesting a lidocaine patch, albuterol/ Advair refill/and Tylenol. She has history of asthma in reports that is been uncontrolled due to lack of inhalers. She reports chronic pain to her feet from some blisters from walking would like some Tylenol for this. She also has some mild right-sided back pain that is also chronic that she uses lidocaine patches for. No lower extremity numbness or tingling. No fevers or chills or sweats. No additional concerns. Related Data Home Medications Medication Instructions Recorded Confirmed clonazepam 0.5 mg tablet 0.5 mg PO QHS 01/25/21 02/19/23 aripiprazole 5 mg tablet (Abilify) 2 mg PO QHS 05/09/21 02/19/23 lidocaine 5 % topical patch 1 patch topical Q24H 08/30/21 02/19/23 Allergies Allergy/AdvReac Type Severity Reaction Status Date / Time No Known Allergies Allergy Verified 04/05/24 06:52 Review of Systems Constitutional: Constitutional: Reports no additional constitutional complaints Cardiovascular: Cardiovascular: Reports no additional cardiovascular complaints Respiratory: Respiratory: Reports no additional respiratory complaints Musculoskeletal: Musculoskeletal: Reports as per HPI [facility] Past Medical History Medical History Anxiety Depression Heart murmur History of COVID-19 History of uterine fibroid Mitral valve regurgitation Vitamin D deficiency Surgical History Surgical History H/O dilation and curettage (~1992) H/O: hysterectomy (~2012) Previous section 2003, 2005, 2011 Family History Family History Mother Hypertension Other Diabetes mellitus Family history of allergic disorder Family history of glaucoma Social History Social History Social History: Going thru divorce.3 children lives at home. Smoking status: Never smoker Alcohol intake: never Substance use: never Substance use type: does not use Living arrangements: with family Occupation/Education: unemployed Gender identity (if verbalized by the patient): Female Sexual Orientation (if Verbalized by the Patient): Straight or Heterosexual Agree to blood products: Yes Exam Narrative: GENERAL: Well-appearing, well-nourished, and in no acute distress. HEAD: Normocephalic, atraumatic. ENT: Mucous membranes moist. CHEST: Clear to auscultation. No respiratory distress. HEART: Regular rate and rhythm. Normal peripheral pulses. EXTREMITIES: Normal range of motion. NEURO: Alert and oriented x3. PSYCH: Normal mood and affect. Course Course Emergency Course: Will provide med refills. No acute complaint. Discharge home. Vital Signs Vital signs: Vital Signs Temperature 97.9 F 04/05/24 06:47 Pulse Rate 65 04/05/24 06:47 Respiratory Rate 18 04/05/24 06:47 Blood Pressure 122/75 04/05/24 06:47 Pulse Oximetry 100 04/05/24 06:47 Oxygen Delivery Room Air 04/05/24 06:47 Temperature 97.9 F 04/05/24 06:47 Pulse Rate 65 04/05/24 06:47 Respiratory Rate 18 04/05/24 06:47 Blood Pressure 122/75 04/05/24 06:47 Pulse Oximetry 100 04/05/24 06:47 Oxygen Delivery Room Air 04/05/24 06:47 Medical Decision Making Vital Signs Vital Signs: Vital Signs Temperature 97.9 F 04/05/24 06:47 Pulse Rate 65 04/05/24 06:47 Respiratory Rate 18 04/05/24 06:47 Blood Pressure 122/75 04/05/24 06:47 Pulse Oximetry 100 04/05/24 06:47 Oxygen Delivery Room Air 04/05/24 06:47 Temperature 97.9 F 04/05/24 06
== END 2024-04-05 08:16 | disposition home or self-care (01) ==
PROVIDERS: Emergency Provider Emergency Medicine
DX: Z76.0 Encounter for issue of repeat prescription (principal); F41.9 Anxiety disorder, unspecified; F32.A Depression, unspecified
CPT/HCPCS: 99281

== ENCOUNTER 2024-04-07 01:49 | Emergency (ER) | payer OTHER, SELFPAY ==
[2024-04-07 01:46] VITALS: BP 133/80; PULSE 83; RESP 16; TEMP 36.9; O2SAT 100
--- NOTE | 2024-04-07 02:13 | ED.GENADULT ---
HPI - General Adult General Chief complaint: Nausea/Vomiting/Diarrhea Stated complaint: n/v Time Seen by Provider: 04/07/24 02:03 History of Present Illness HPI narrative: Patient is a 48-year-old female who presents to the emergency department this morning complaining of nausea, hemorrhoids and shortness of breath. Patient states that she feels as though her asthma is acting up and is requesting a breathing treatment. She also states for her hemorrhoids are bothering and that she does not have money to buy the preparation H cream she normally uses which helps with her hemorrhoids. Patient is requesting a script for preparation and 8 so that her insurance can cover it. She denies any vomiting episodes, stating that she only gets nauseous but has not vomited. She is currently denying any fevers or chills chills, denies abdominal pain, and urinalysis and melena or hematochezia, and any chest pain. No additional symptoms or concerns at this time. Related Data Home Medications Medication Instructions Recorded Confirmed clonazepam 0.5 mg tablet 0.5 mg PO QHS 01/25/21 02/19/23 aripiprazole 5 mg tablet (Abilify) 2 mg PO QHS 05/09/21 02/19/23 lidocaine 5 % topical patch 1 patch topical Q24H 08/30/21 02/19/23 Allergies Allergy/AdvReac Type Severity Reaction Status Date / Time No Known Allergies Allergy Verified 04/07/24 01:59 Review of Systems Review of Systems: All systems are reviewed and are negative unless stated otherwise in the HPI. [facility] Past Medical History Medical History Anxiety Depression Heart murmur History of COVID-19 History of uterine fibroid Mitral valve regurgitation Vitamin D deficiency Surgical History Surgical History H/O dilation and curettage (~1992) H/O: hysterectomy (~2012) Previous section 2003, 2005, 2011 Family History Family History Mother Hypertension Other Diabetes mellitus Family history of allergic disorder Family history of glaucoma Social History Social History Social History: Going thru divorce.3 children lives at home. Smoking status: Never smoker Alcohol intake: never Substance use: never Substance use type: does not use Living arrangements: with family Occupation/Education: unemployed Gender identity (if verbalized by the patient): Female Sexual Orientation (if Verbalized by the Patient): Straight or Heterosexual Agree to blood products: Yes Exam Narrative: General: Alert, awake, afebrile, in no acute distress. Cardiovascular: Regular rate and rhythm, no murmurs, rubs or gallops, no peripheral edema. Respiratory: Clear to auscultation bilaterally, no tachypnea, no wheezing, no rhonchi, no rubs, no respiratory distress. Abdomen: Soft, nontender, nondistended, no rebound, no guarding, no peritoneal signs. Musculoskeletal: No joint swelling or deformity, normal muscle tone. Skin: No rashes or petechia, no signs of infection. Psychiatric: Alert and oriented, normal behavior and judgment for situation. Neurological: Alert and oriented to person, place, and time. Follows all commands. No focal deficits, speech is clear and fluent. Course Vital Signs Vital signs: Vital Signs Temperature 98.5 F 04/07/24 01:46 Pulse Rate 83 04/07/24 01:46 Respiratory Rate 16 04/07/24 01:46 Blood Pressure 133/80 04/07/24 01:46 Pulse Oximetry 100 04/07/24 01:46 Oxygen Delivery Room Air 04/07/24 01:46 Temperature 98.5 F 04/07/24 01:46 Pulse Rate 74 04/07/24 03:38 Respiratory Rate 16 04/07/24 03:38 Blood Pressure 133/80 04/07/24 01:46 Pulse Oximetry 100 04/07/24 01:46 Oxygen Delivery Room Air 04/07/24 01:46 Medical Decision Making MDM Narrative Medical decision making narra
[2024-04-07 02:22] LABS: Basophils Percent Auto 0.2 % (0.2-1.2); Eosinophils Absolute Auto 0.1 K/mm3 (0-0.3); Eosinophils Percent Auto 2.9 % (0-4.4); Hematocrit 38.3 % (37.0-47.0); Hemoglobin 12.8 g/dL (12.0-15.0); Immature Granulocyte Absolute 0.01 K/mm3 (0.00-0.031); Immature Granulocyte Percent A 0.2 % (0-0.5); Lymphocytes Absolute Auto 1.63 K/mm3 (0.9-3.2); Lymphocytes Percent Auto 33.5 % (18.3-44.2); Mean Corpuscular HGB Conc 33.4 g/dl (32-36); Mean Corpuscular Hemoglobin 31.6 pg (26-34); Mean Corpuscular Volume 94.6 fl (80-100); Mean Platelet Volume 10.6 fl (7.4-10.4); Monocytes Absolute Auto 0.4 K/mm3 (0.1-0.6); Monocytes Percent Auto 7.8 % (2.6-8.5); Neutrophils Absolute Auto 2.7 K/mm3 (1.3-6.7); Neutrophils Percent Auto 55.4 % (45.5-73.1); Platelet Count Result 203 k/mm3 (150-375); Red Blood Count 4.05 M/mm3 (4.2-5.4); Red Cell Distribution Width 12.9 % (11.5-14.5); White Blood Count 4.9 K/mm3 (4.5-10.0)
[2024-04-07 02:35] LABS: Magnesium 2.1 mg/dL (1.6-2.3)
[2024-04-07 02:35] LABS: Lactic Acid Reflex 0.8 mmol/L (0.7-2.0)
[2024-04-07 02:36] LABS: Alanine Aminotransferase 49 U/L (6-35); Albumin Level 4.1 g/dL (3.5-5.1); Alkaline Phosphatase 73 U/L (38-126); Anion Gap 4 mmol/L (4-12); Aspartate Amino Transferase 44 U/L (14-36); Bilirubin,Total 0.5 mg/dL (0.2-1.3); Blood Urea Nitrogen 16 mg/dL (7-17); Calcium 8.7 mg/dL (8.4-10.2); Carbon Dioxide 29 mmol/L (22-30); Chloride 103 mmol/L (98-107); Estimated CRCL calculation 71 ml/min; Estimated Glomerular Filt Rate > 60; Glucose 101 mg/dL (65-110); Lipase 291 U/L (23-300); Potassium 3.7 mmol/L (3.4-5.0); Sodium 136 mmol/L (137-145)
[2024-04-07 03:03] LABS: Serum Qual hCG Negative
[2024-04-07 03:04] LABS: SPREG INTERNAL CONTROL Positive
[2024-04-07 03:30] VITALS: PULSE 79; RESP 16
[2024-04-07] MEDS: IPRATROPIUM 0.5 MG/ALBUTEROL SULFATE 2.5 MG AMPUL.NEB 3 ML INHALATION (03:35)
[2024-04-07 03:38] VITALS: PULSE 74; RESP 16
== END 2024-04-07 03:58 | disposition home or self-care (01) ==
PROVIDERS: Emergency Provider Emergency Medicine
DX: K64.9 Unspecified hemorrhoids (principal); R11.0 Nausea; F41.8 Other specified anxiety disorders; E55.9 Vitamin D deficiency, unspecified
CPT/HCPCS: 36415; 80053; 82248; 83605; 83690; 83735; 84703; 85025; 94640; 99283

== ENCOUNTER 2024-04-27 22:03 | Emergency (ER) | payer OTHER, SELFPAY ==
[2024-04-27 22:15] VITALS: BP 136/83; PULSE 98; RESP 17; TEMP 36.8; O2SAT 100
--- NOTE | 2024-04-27 23:44 | ED.GENADULT ---
HPI - General Adult General Chief complaint: Unspecified Stated complaint: asthma, requesting breathing treatment Time Seen by Provider: 04/27/24 23:19 History of Present Illness HPI narrative: 48 y/o F presents to the ED for medication refills. She is requesting refills for her Advair, albuterol and lidocaine patches. She is requesting a breathing treatment today. I asked her if she was feeling short of breath and she said no. She states her back pain feels like her normal back pain. She denies recent injury trauma, saddle anesthesia, bowel or bladder incontinence or retention, fever. When I asked her if she had a cough she said I am coughing because your making me breathe hard , then stated why the hell would I come in today if I wasn't coughing. Related Data Home Medications Medication Instructions Recorded Confirmed clonazepam 0.5 mg tablet 0.5 mg PO QHS 01/25/21 02/19/23 aripiprazole 5 mg tablet (Abilify) 2 mg PO QHS 05/09/21 02/19/23 lidocaine 5 % topical patch 1 patch topical Q24H 08/30/21 02/19/23 Allergies Allergy/AdvReac Type Severity Reaction Status Date / Time No Known Allergies Allergy Verified 04/27/24 22:58 Review of Systems Review of Systems: CONSTITUTIONAL: Denies fever, chills, or sweats. EYES: Denies visual changes, redness, or discharge. ENT: Denies rhinorrhea, congestion, sore throat, or otalgia. CARDIOVASCULAR: Denies chest pain, palpitations, or edema. RESPIRATORY: See HPI GASTROINTESTINAL: Denies abdominal pain, nausea, vomiting, or diarrhea. GENITOURINARY: Denies dysuria or hematuria. SKIN: Denies rash or itching. MUSCULOSKELETAL: see HPI NEUROLOGIC: Denies headache, numbness, or weakness. PSYCHIATRIC: Denies anxiety or depression. [facility] Past Medical History Medical History Anxiety Depression Heart murmur History of COVID-19 History of uterine fibroid Mitral valve regurgitation Vitamin D deficiency Surgical History Surgical History H/O dilation and curettage (~1992) H/O: hysterectomy (~2012) Previous section 2004, 2006, 2012 Family History Family History Mother Hypertension Other Diabetes mellitus Family history of allergic disorder Family history of glaucoma Social History Social History Social History: Going thru divorce.3 children lives at home. Smoking status: Never smoker Alcohol intake: never Substance use: never Substance use type: does not use Living arrangements: with family Occupation/Education: unemployed Gender identity (if verbalized by the patient): Female Sexual Orientation (if Verbalized by the Patient): Straight or Heterosexual Agree to blood products: Yes Exam Narrative: GENERAL: Well-appearing, well-nourished, and in no acute distress. HEAD: Normocephalic, atraumatic. EYES: PERRLA and EOMI. ENT: Nares clear, no rhinorrhea or epistaxis. Mucous membranes moist. NECK: Supple. CHEST: Clear to auscultation. No respiratory distress. HEART: Regular rate and rhythm. No murmur heard. Normal peripheral pulses. ABDOMEN: Soft, nontender, nondistended, normal active bowel sounds. EXTREMITIES: Normal range of motion. No edema. SKIN: Warm, dry, no rash. NEURO: No focal deficits. Alert and oriented x3. Ambulatory Course Vital Signs Vital signs: Vital Signs Temperature 98.2 F 04/27/24 22:15 Pulse Rate 98 04/27/24 22:15 Respiratory Rate 17 04/27/24 22:15 Blood Pressure 136/83 04/27/24 22:15 Pulse Oximetry 100 04/27/24 22:15 Oxygen Delivery Room Air 04/27/24 22:15 Temperature 98.2 F 04/27/24 22:15 Pulse Rate 98 04/27/24 22:15 Respiratory Rate 17 04/27/24 22:15 Blood Pressure 136/83 04/27/24 22:15 Pulse Oximetry 100 04/27/24 22:15 O
--- NOTE | 2024-04-27 23:45 | PC.NURSE ---
Pt screamed at MOIRA Maddox. Varsha offered to see the patient and treat her, or she could leave. Pt continued to scream and cuss at the provider. Security notified at this time.
--- NOTE | 2024-04-27 23:48 | PC.NURSE ---
Pt walked out of ED with security while yelling Don't fuck with me, Misha!
== END 2024-04-28 00:08 | disposition left against medical advice (07) ==
LOC: ANHED 04-28 00:03
PROVIDERS: Emergency Provider Physician Assistant
DX: J45.909 Unspecified asthma, uncomplicated (principal); M54.9 Dorsalgia, unspecified; Z76.0 Encounter for issue of repeat prescription; I34.0 Nonrheumatic mitral (valve) insufficiency; E55.9 Vitamin D deficiency, unspecified; F41.9 Anxiety disorder, unspecified; F32.A Depression, unspecified; Z90.710 Acquired absence of both cervix and uterus; Z86.16 Personal history of COVID-19; Z79.899 Other long term (current) drug therapy
CPT/HCPCS: 99281